=== PATIENT | female | born 1935 | race Caucasian/White ===

== ENCOUNTER → 2017-07-24 | Outpatient (CLI) | payer MEDICARE ==
--- NOTE | 2017-07-27 09:09 | RADONC ---
RADIATION ONCOLOGY CONSULTATION NOTE DATE: 07/24/2017 CHART NUMBER: [id number]. DIAGNOSIS: Cutaneous squamous cell carcinoma. STAGE: I, T1N0M0. ECOG PERFORMANCE STATUS: Zero. CONSULTATION NOTE: Ms. 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 HISTORY OF PRESENT ILLNESS: The patient was in her usual state of health until she developed a nonhealing lesion on the top of her scalp. On 07/03/2017, the patient underwent biopsy and pathology revealed a well-differentiated squamous cell carcinoma. She is now presenting for consideration of definitive external beam radiation therapy. PAST MEDICAL HISTORY: The patient's past medical history is positive for hypertension and arthritis. She has had a hysterectomy, a cholecystectomy and bowel resection in the past. ALLERGIES: The patient has is allergic to PENICILLIN. SOCIAL HISTORY: The patient does not smoke cigarettes. She drinks occasional wine. FAMILY HISTORY: The patient's family history is positive for a sister with ovarian cancer. REVIEW OF SYSTEMS: The patient's review of systems is positive for a slight tremor of her head. It is otherwise noncontributory. Denies nausea, vomiting, fevers, chills, night sweats, diplopia, headaches, anxiety or depression, anorexia, weight loss, visual disturbances, chest pain, urinary or bowel difficulties, bone pain, or neurological problems. PHYSICAL EXAMINATION: The patient is a well-developed, well-nourished 82-year-old, white female in no acute distress. HEENT: Exam is normocephalic, atraumatic. There is a small lesion at the top of her scalp consistent with her above history. There are no other lesions over the patient's face, neck or shoulders. There is no palpable preauricular, cervical, supraclavicular, infraclavicular lymphadenopathy present. Her lungs are clear to auscultation and percussion. ASSESSMENT: Ms. 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 Clearly, the patient is a candidate for external beam radiation therapy and so informed her. I have discussed with the patient in detail the potential benefits as well as possible acute and chronic sequelae of external beam radiation therapy. We discussed logistics of treatment planning, simulation and subsequent fractionated daily radiation treatments. I have scheduled the patient for the next available simulation slot and radiation treatments will begin subsequently. Thank you for allowing us to participate in the care of this very pleasant woman. If I could be of any further assistance or provide you with any information, please free to contact me anytime. As always, warm regards. cc: DO Sharon Luong NP
--- NOTE | 2017-09-17 08:00 | RADONC ---
RADIATION ONCOLOGY PROGRESS NOTE DATE: 09/15/2017 CHART NUMBER: [id number] Ms. Estevez is presently at a dose of 2250 cGy to her scalp and is tolerating treatments quite well at this point with no complaints related to her radiation therapy. She is having no skin discomfort or other problems. The patient's review of systems is noncontributory. She denies nausea, vomiting, fevers, chills, night sweats, diplopia, headaches, anxiety or depression, anorexia, weight loss, visual disturbances, chest pain, urinary or bowel difficulties, bone pain, or neurological problems. PHYSICAL EXAMINATION: The patient's skin is in excellent condition with no evidence of moist or dry desquamation. The remainder of her physical exam remains unchanged. Ms. Estevez is tolerating treatments quite well and radiation will continue as scheduled.
== END ==
LOC: M ONCR 08:56
PROVIDERS: ATTEND Radiology Radiation Oncology
DX: C44.42 Squamous cell carcinoma of skin of scalp and neck (principal)

== ENCOUNTER 2017-09-17 14:16 | Outpatient (RCR) | payer MEDICARE ==
--- NOTE | 2017-09-24 06:41 | RADONC ---
RADIATION ONCOLOGY PROGRESS NOTE DATE: 09/22/2017 CHART NUMBER: [id number] Ms. Estevez is presently at a dose of 3500 cGy to her scalp and is tolerating treatments quite well at this point with no complaints related to her radiation therapy. She is having no skin pain or other discomfort. REVIEW OF SYSTEMS: The patient's review of systems is noncontributory. Denies nausea, vomiting, fevers, chills, night sweats, diplopia, headaches, anxiety or depression, anorexia, weight loss, visual disturbances, chest pain, urinary or bowel difficulties, bone pain, or neurological problems. PHYSICAL EXAMINATION: The patient's skin is in good condition with no evidence of radiation change present. There is no moist or dry desquamation. The remainder of her physical exam remains unchanged. Ms. Estevez is tolerating treatments quite well and radiation will continue as scheduled.
--- NOTE | 2017-09-29 10:11 | RADONC ---
RADIATION ONCOLOGY FOLLOWUP DATE: 09/29/2017 CHART NUMBER: [id number] Ms. Estevez is presently on a dose of 4750 cGy to her scalp and is tolerating treatments quite well at this point with no complaints related to her radiation therapy. She is having no skin discomfort or other problems. REVIEW OF SYSTEMS: The patient's review of systems is noncontributory. Denies nausea, vomiting, fevers, chills, night sweats, diplopia, headaches, anxiety or depression, anorexia, weight loss, visual disturbances, chest pain, urinary or bowel difficulties, bone pain, or neurological problems. PHYSICAL EXAMINATION The patient's skin is in good condition with no evidence of moist or dry desquamation. The remainder of her physical exam remains unchanged. Ms. Estevez is tolerating treatments quite well, and radiation is scheduled for completion tomorrow.
--- NOTE | 2017-10-01 10:11 | RADONC ---
RADIATION ONCOLOGY TREATMENT SUMMARY DATE: 10/01/2017 CHART NUMBER: [id number] DIAGNOSIS: Cutaneous squamous cell carcinoma. STAGE: I, T1N0M0. ECOG PERFORMANCE STATUS: 0. TREATMENT SUMMARY: Ms. 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 We treated the patient to her scalp lesion for a total dose of 5000 cGy delivered in 20 fractions of 250 cGy each over 28 elapsed days from 09/02/2017 through 09/30/2017. The patient's scalp was treated on a linear accelerator utilizing a 6 MEV electron beam prescribed to the 90% isodose line via non phos technique. 1/2 cm of tissue equivalent bolus was placed over the treatment field. Ms. Estevez tolerated her treatments quite well and was able complete therapy as prescribed without interruption. I have scheduled the patient to see me again in 1 month for further followup. She will also continue to be followed by her other physicians as well. Thank you for allowing us to participate in the care of this very pleasant woman. If I can be of any further assistance or provide you with any information, please free to contact me anytime. As always, warm regards. cc: DO Sharon Luong NP
== END 2017-10-16 ==
LOC: M ONCR 14:16
PROVIDERS: ATTEND Radiology Radiation Oncology
DX: C44.42 Squamous cell carcinoma of skin of scalp and neck (principal)

== ENCOUNTER → 2017-10-29 | Outpatient (CLI) | payer MEDICARE ==
--- NOTE | 2017-10-29 16:58 | RADONC ---
RADIATION ONCOLOGY FOLLOWUP NOTE DATE: 10/29/2017 CHART NUMBER: [id number]. DIAGNOSIS: Cutaneous squamous cell carcinoma. STAGE: I, T1N0M0. ECOG PERFORMANCE STATUS: Zero. FOLLOWUP NOTE: Ms. 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 The patient presents today reporting that she is doing quite well with no complaints related to her radiation therapy or disease. There is no skin pain or other problems. REVIEW OF SYSTEMS: The patient's review of systems is noncontributory. Denies nausea, vomiting, fevers, chills, night sweats, diplopia, headaches, anxiety or depression, anorexia, weight loss, visual disturbances, chest pain, urinary or bowel difficulties, bone pain, or neurological problems. PHYSICAL EXAMINATION The patient's skin is in good condition with no evidence of moist or dry desquamation. The area of treating is smooth with no evidence of nodularity, ulceration, residual or recurrent disease. The remainder of her skin shows no suspicious lesions. There is no palpable preauricular, cervical, supraclavicular, infraclavicular or axillary lymphadenopathy present. Her lungs are clear to auscultation and percussion. ASSESSMENT: Ms. Estevez is clinically GIAN at this time and will be seen by us again in 6 months for further followup. She will also continue to be followed by her other physicians in the meantime.
== END ==
LOC: M ONCR 09:25
PROVIDERS: ATTEND Radiology Radiation Oncology
DX: C44.42 Squamous cell carcinoma of skin of scalp and neck (principal)

== ENCOUNTER → 2018-02-06 | Outpatient (REF) | payer MEDICARE ==
[2018-02-06 16:49] LABS: BASO % 0.4 % (0.0-1.0); EOS # 0.1 10^3/uL (0.0-0.50); EOS % 1.3 % (0.0-3.0); HEMATOCRIT 38.3 % (36.0-47.0); HEMOGLOBIN 12.9 g/dl (12.0-16.0); IMMATURE GRANULOCYTE % 0.2 % (0-3.0); LYMPH # 1.5 10^3/uL (1.5-4.5); MEAN CORPUSCULAR HEMOGLOBIN 31.9 pg (27.0-33.0); MEAN CORPUSCULAR HGB CONC 33.7 g/dl (32.0-36.5); MEAN CORPUSCULAR VOLUME 94.6 fl (80.0-96.0); MONO # 0.5 10^3/uL (0.0-0.8); MONO % 9.4 % (0.0-5.0); NEUTROPHILS # 3.1 10^3/uL (1.8-7.7); NEUTROPHILS % 59.7 % (36.0-66.0); PLATELET COUNT, AUTOMATED 303 10^3/uL (150-450); RED BLOOD COUNT 4.05 10^6/uL (4.00-5.40); RED CELL DISTRIBUTION WIDTH 12.6 % (11.5-14.5); WHITE BLOOD COUNT 5.2 10^3/uL (4.0-10.0)
[2018-02-06 16:50] LABS: ALBUMIN 4.1 GM/DL (3.2-5.2); ALBUMIN/GLOBULIN RATIO 1.24 (1.00-1.93); ALKALINE PHOSPHATASE 123 U/L (45-117); ALT/SGPT 30 U/L (12-78); ANION GAP 4 MEQ/L (8-16); AST/SGOT 25 U/L (7-37); BILIRUBIN,TOTAL 0.5 MG/DL (0.2-1.0); BLOOD UREA NITROGEN 21 MG/DL (7-18); CALCIUM LEVEL 9.6 MG/DL (8.8-10.2); CARBON DIOXIDE LEVEL 28 MEQ/L (21-32); CHLORIDE LEVEL 106 MEQ/L (98-107); CHOLESTEROL LEVEL 237 MG/DL (<200); CHOLESTEROL RISK RATIO 3.385 (<5); GLOMERULAR FILTRATION RATE > 60.0 (>32); GLUCOSE, FASTING 98 MG/DL (70-100); HDL CHOLESTEROL 70 MG/DL (>40); LDL CHOLESTEROL 132.2 MG/DL (<100); NON-HDL-C 167 MG/DL; POTASSIUM SERUM 4.5 MEQ/L (3.5-5.1); SODIUM LEVEL 138 MEQ/L (136-145); TOTAL PROTEIN 7.4 GM/DL (6.4-8.2); TRIGLYCERIDES LEVEL 174 MG/DL (<150)
== END ==
LOC: M LAB REF 16:16
DX: I25.10 Atherosclerotic heart disease of native coronary artery without angina pectoris (principal); K57.30 Diverticulosis of large intestine without perforation or abscess without bleeding; E78.4 Other hyperlipidemia; K21.0 Gastro-esophageal reflux disease with esophagitis; Z00.00 Encounter for general adult medical examination without abnormal findings; I10 Essential (primary) hypertension
CPT/HCPCS: 80053

== ENCOUNTER → 2018-05-14 | Outpatient (CLI) | payer MEDICARE | LOC: M ONCR 09:20 | DX: C44.42 Squamous cell carcinoma of skin of scalp and neck (principal) | CPT/HCPCS: G0463 ==

== ENCOUNTER → 2019-02-08 | Outpatient (REF) | payer MEDICARE ==
[2019-02-08 17:17] LABS: ALBUMIN 3.9 GM/DL (3.2-5.2); ALT/SGPT 87 U/L (12-78); BILIRUBIN,TOTAL 0.4 MG/DL (0.2-1.0); BLOOD UREA NITROGEN 15 MG/DL (7-18); CALCIUM LEVEL 9.5 MG/DL (8.8-10.2); CARBON DIOXIDE LEVEL 29 MEQ/L (21-32); CHLORIDE LEVEL 106 MEQ/L (98-107); GLOMERULAR FILTRATION RATE > 60.0 (>32); GLUCOSE, FASTING 99 MG/DL (70-100); POTASSIUM SERUM 4.4 MEQ/L (3.5-5.1); SODIUM LEVEL 141 MEQ/L (136-145); TOTAL PROTEIN 7.3 GM/DL (6.4-8.2)
[2019-02-08 17:28] LABS: BASO % 0.3 % (0.0-1.0); EOS # 0.1 10^3/uL (0.0-0.50); EOS % 1.6 % (0.0-3.0); HEMATOCRIT 40.7 % (36.0-47.0); HEMOGLOBIN 13.4 g/dl (12.0-15.5); LYMPH # 1.3 10^3/uL (1.5-4.5); LYMPH % 22.1 % (24.0-44.0); MEAN CORPUSCULAR HEMOGLOBIN 31.8 pg (27.0-33.0); MEAN CORPUSCULAR HGB CONC 32.9 g/dl (32.0-36.5); MEAN CORPUSCULAR VOLUME 96.7 fl (80.0-96.0); MONO # 0.4 10^3/uL (0.0-0.8); MONO % 7.7 % (0.0-5.0); NEUTROPHILS # 3.9 10^3/uL (1.8-7.7); NEUTROPHILS % 68.1 % (36.0-66.0); PLATELET COUNT, AUTOMATED 286 10^3/uL (150-450); RED BLOOD COUNT 4.21 10^6/uL (4.00-5.40); WHITE BLOOD COUNT 5.8 10^3/uL (4.0-10.0)
== END ==
LOC: M LAB REF 16:13
PROVIDERS: ATTEND Family Medicine
DX: Z00.00 Encounter for general adult medical examination without abnormal findings (principal); R14.0 Abdominal distension (gaseous); I25.10 Atherosclerotic heart disease of native coronary artery without angina pectoris; K57.30 Diverticulosis of large intestine without perforation or abscess without bleeding; Z80.41 Family history of malignant neoplasm of ovary

== ENCOUNTER → 2021-04-11 | Outpatient (CLI) | payer MEDICARE ==
--- NOTE | 2021-04-18 11:07 | REP ---
INDICATION: CERVICALGIA, LBP, OA OF HIP. COMPARISON: [facility] 02/25/2019. TECHNIQUE: Multiple sequences obtained in the axial, coronal and sagittal planes. FINDINGS: There are findings of severe erosive arthropathy of the left hip joint. These findings are new compared to the prior CT of 02/25/2019. There is cortical destruction and erosion of the left femoral head with irregular flattening. There is associated moderate marrow edema throughout the left femoral head and neck. There is erosive deepening of the left acetabulum with associated marrow edema. There is a moderate joint effusion of the left hip. There is mild to moderate soft tissue edema surrounding the left hip. No other abnormal bone marrow signal is seen of the osseous structures of the pelvis. Degenerative disc changes are seen at the L4-5 and L5-S1 levels with mild to moderate disc bulging at both of these levels. Moderate fluid is seen along the greater trochanter of the proximal right femur, compatible with a moderate degree of greater trochanteric tendonobursitis. No mass or free fluid is seen in the pelvis. There is no evidence of pelvic adenopathy. There has been a prior hysterectomy. IMPRESSION: There are findings of severe erosive arthropathy of the left hip joint as discussed above, with associated marrow edema in the left acetabulum and left femoral head and neck. These findings are new compared to the prior CT of 02/25/2019. Moderate effusion left hip, with surrounding soft tissue edema. There are findings of moderate right-sided greater trochanteric tendonobursitis. <Electronically signed by Naun Davis > 04/18/21 [id number]
== END ==
LOC: M RAD 16:00
PROVIDERS: ATTEND Physical Medicine & Rehabilitation
DX: M54.2 Cervicalgia (principal); M54.5 Low back pain; M16.0 Bilateral primary osteoarthritis of hip

== ENCOUNTER → 2021-05-15 | Outpatient (CLI) | payer MEDICARE ==
[~2021-05-15] MED LIST: ISOVUE-300 61% 50ML VIAL As Ordered ONE; LIDOCAINE 1% MDV 20ML VIAL As Ordered ONE; methylPREDNISolone SUSP 40MG/ML 1ML VIAL (DEPO MEDROL) As Ordered ONE
--- NOTE | 2021-05-15 15:39 | REP ---
INDICATION: LT HIP PAIN. COMPARISON: None TECHNIQUE: The procedure was performed by BIANCA Huerta, under the direct supervision of Dr. Kern. The benefits and risks of the procedure were explained to the patient, and an informed consent was obtained. Directly prior to the start of the procedure, a formal time-out was completed in the procedure room. The left femoral neck joint space was localized using fluoroscopic guidance. The skin was prepped and draped in a sterile fashion. Approximately 5 mL of 1% Lidocaine 10 mg/ml was used as a local anesthetic. Using fluoroscopic guidance, a #22 gauge spinal needle was inserted and advanced into the left femoral neck joint space. Approximately 1 mL of Isovue 300 was injected to verify placement. Seven mL of a solution containing 5 mL 1% lidocaine 10 mg/ml and 2 mL Depo-Medrol 40 milligrams/milliliter was injected into the joint space. The needle was removed and hemostasis was achieved. FINDINGS: The patient tolerated the procedure well and there were no immediate complications. IMPRESSION: 1. Fluoroscopically guided left hip intra-articular pain injection. 0.1 minutes of fluoroscopy time was utilized for this procedure. Some fluoroscopic images are performed with last image hold technology. These images require no additional radiation. <Electronically signed by Deysi Shahid > 05/15/21 [id number] <Electronically signed by Robby Kern > 05/15/21 [id number]
== END ==
LOC: M RADPRO 12:44
PROVIDERS: ATTEND Physician Assistant
DX: M25.552 Pain in left hip (principal)
CPT/HCPCS: 20610; 77002; J1030; Q9967

== ENCOUNTER → 2022-08-28 | Outpatient (CLI) | payer MEDICARE ==
[~2022-08-28] MED LIST changes: +ATEN50TA2 PO; +ATOR80TA59 PO; +ECOT81TA5 PO; -ISOVUE-300 61% 50ML VIAL As Ordered ONE; -LIDOCAINE 1% MDV 20ML VIAL As Ordered ONE; +OMEP-173 PO; -methylPREDNISolone SUSP 40MG/ML 1ML VIAL (DEPO MEDROL) As Ordered ONE
== END ==
LOC: M LABSMTC 09:46
PROVIDERS: ATTEND Anesthesiology
DX: Z01.812 Encounter for preprocedural laboratory examination (principal); Z20.822 Contact with and (suspected) exposure to COVID-19

== ENCOUNTER 2022-09-02 09:52 | Day surgery (SDC) | payer MEDICARE ==
[~2022-09-02] VITALS: Ht 152.4 cm; Wt 53.4 kg
[~2022-09-02 09:52] MED LIST changes: +LIDOCAINE 1% SDV 5ML VIAL As Ordered ONE; +MIDAZOLAM INJ 2MG/2ML VIAL (J2250 PER 1MG) As Ordered ONE; +POVIDONE-IODINE 5% OPHTH PREP SOL 30ML As Ordered ONE
[2022-09-02] MEDS: TROPICAMIDE 1% OPHTH SOLN 2ML OD SCH ×3 (11:09→11:43)
[2022-09-02] MEDS: PHENYLEPHRINE 2.5% OPHTH SOL 2ML OD SCH ×3 (11:09→11:43)
[2022-09-02] MEDS: CYCLOPENTOLATE 1% OPHTH SOLN 2 ML BTL OD SCH ×3 (11:09→11:43)
[2022-09-02] MEDS ORDERED: PHENYLEPHRINE HCL 10 % OPHTH. SOL 5ML OD PRN (12:10)
[2022-09-02] MEDS ORDERED: OFLOXACIN 0.3 % (OCUFLOX) OPTH SOL 5ML OD ONE (12:10)
[2022-09-02] MEDS ORDERED: LIDOCAINE 3.5 % 1ML OPHTH TOPICAL GEL OU ONE (12:10)
[2022-09-02] MEDS ORDERED: BSS IRRIG/VANCO(10MG)/TOBRA(5MG)/EPINEPH(1:1000-0.5CC)500ML BAG-ORONLY IR ONE (12:10)
[2022-09-02 12:18] VITALS: BP 180/74
== END 2022-09-02 12:35 | disposition home or self-care (01) ==
LOC: M SDC 09:52
PROVIDERS: ATTEND Ophthalmology
DX: H25.11 Age-related nuclear cataract, right eye (principal); I10 Essential (primary) hypertension; E78.5 Hyperlipidemia, unspecified; K21.9 Gastro-esophageal reflux disease without esophagitis; Z85.828 Personal history of other malignant neoplasm of skin; Z92.3 Personal history of irradiation; Z79.899 Other long term (current) drug therapy; Z88.0 Allergy status to penicillin
CPT/HCPCS: 66984; J2250; V2632